=== PATIENT | female | born 1950 ===

== ENCOUNTER → 2021-11-28 14:08 | Outpatient (BNVA) | payer MEDICARE, OTHER, SELFPAY | PROVIDERS: PCP Family Medicine; Visit Provider Psychiatry & Neurology Neurology | DX: G43.709 Chronic migraine without aura, not intractable, without status migrainosus (principal); F41.9 Anxiety disorder, unspecified | CPT/HCPCS: 99212 ==

== ENCOUNTER → 2022-02-20 13:12 | Outpatient (BNVA) | payer MEDICARE, OTHER, SELFPAY | PROVIDERS: PCP Family Medicine; Visit Provider Psychiatry & Neurology Neurology | DX: G43.709 Chronic migraine without aura, not intractable, without status migrainosus (principal); F41.9 Anxiety disorder, unspecified; R42 Dizziness and giddiness; Z79.899 Other long term (current) drug therapy | CPT/HCPCS: 99212 ==

== ENCOUNTER → 2022-08-26 11:16 | Outpatient (BNVA) | payer MEDICARE, OTHER, SELFPAY | PROVIDERS: PCP Family Medicine; Visit Provider Psychiatry & Neurology Neurology | DX: G43.709 Chronic migraine without aura, not intractable, without status migrainosus (principal); F41.9 Anxiety disorder, unspecified; Z79.899 Other long term (current) drug therapy | CPT/HCPCS: 99212 ==

== ENCOUNTER 2023-09-08 13:05 | Outpatient (AMB) | payer MEDICARE, OTHER, SELFPAY ==
--- NOTE | 2023-09-08 13:09 | MHC.OFFVIS ---
Intake Vital Signs 09/08/23 13:11 Height 5 ft 4 in Weight 129 lb 2 oz BMI 22.2 BP 130/82 Blood Pressure Location Rt brachial Position Sitting Respiration 17 Pulse 65 Pulse Source Pulse Oximeter Pulse Oximetry (%) 97 Oxygen Delivery Method Room Air Intake Visit Reasons: 1 yr f/u - CONF Intake Note: Pt presents to the office for 1 year follow up for migraines. [employer] Required: No Allergies No Known Allergies Allergy (Verified 09/08/23 13:10) Medication List - Last Reconciled 09/08/23 by Daria Aguilera MD alprazolam 0.5 mg PO BID PRN ipratropium bromide sprays intranasal loratadine (Claritin) 10 mg PO DAILY magnesium oxide 200 mg PO BEDTIME metronidazole 0.75% appl topical DAILY riboflavin (vitamin B2) 400 mg PO QAM sumatriptan succinate 50 mg PO DAILY PRN tretinoin 0.05% appl topical BEDTIME HPI HPI Comments History of Present Illness Details 73y/o female comes for follow up of migraines after 1 year. she has 5-8 headaches a month and usually imitrex helps ( 25 mg - 50mg) she is on riboflavin 400mg qam Magnesium 200mg qhs. Her magnesium level has been high and PTH was high - she is being referred to endocrine. SHe is responding to sumatriptan 50mg 1/2 tab as needed she sees a warehouse team member for atrial flutter .she restarted on propranolol 40mg bid. [facility] Medical History (Updated 09/08/23 @ 13:44 by Daria Aguilera MD) Migraine without aura Atrial tachycardia PVC (premature ventricular contraction) Anxiety Depression Surgical History History of cataract surgery Social History Alcohol intake: never Patient Tobacco Use Status: Never used Tobacco Physical Exam Vital Signs: Last Vital Signs Pulse 65 09/08/23 13:11 Resp 17 09/08/23 13:11 BP 130/82 09/08/23 13:11 Pulse Ox 97 09/08/23 13:11 Oxygen Delivery Method Room Air 09/08/23 13:11 BMI result Body Mass Index 22.2 Const General: cooperative, healthy appearing and comfortable Nutritional Appearance: average body habitus Orientation/consciousness: patient oriented x3 Neuro General: patient oriented x3, gait normal, tone normal, moves all extremities, Normal light touch and pain sensation, no focal motor deficits and CN's II-XI intact bilaterally Cranial nerves: Yes CN's II-XII intact bilaterally Cognition (Neuro): normal cognition Gait exam (Neuro): Normal gait present Motor exam (neuro): 5/5 motor strength present throughout Assessment & Plan Assessment & Plan (1) Migraine without aura: Code(s): G43.009 - Migraine without aura, not intractable, without status migrainosus (2) Anxiety: Code(s): F41.9 - Anxiety disorder, unspecified Plan D/C magnesium 200mg qhs VitB 2 400mg qam Imitrex 50mg as needed Discussed about various options for anxiety- she could not tolerate and wants to stay on alprazolam. F/u with PCP for sumatriptan refills and abdominal pain. Medications: Refilled sumatriptan succinate 50 mg PO DAILY PRN 10 tabs 6RF migraine headache Coding Level of Care Code Est Pt Level 4 (69290) Diagnoses Migraine without aura G43.009 Anxiety F41.9
[2023-09-08 13:11] VITALS: BP 130/82; PULSE 65; RESP 17; O2SAT 97; BMI 22.2
== END 2023-09-08 13:51 | disposition home or self-care (01) ==
LOC: HO.HSMS 13:05
PROVIDERS: PCP Family Medicine; Visit Provider Psychiatry & Neurology Neurology
DX: G43.009 Migraine without aura, not intractable, without status migrainosus (principal); F41.9 Anxiety disorder, unspecified
CPT/HCPCS: 99214

== ENCOUNTER → 2023-09-08 13:05 | Outpatient (BNVA) | payer MEDICARE, OTHER, SELFPAY | PROVIDERS: PCP Family Medicine; Visit Provider Psychiatry & Neurology Neurology | DX: G43.009 Migraine without aura, not intractable, without status migrainosus (principal); F41.9 Anxiety disorder, unspecified | CPT/HCPCS: 99212 ==